=== PATIENT | male | born 1970 | race Caucasian/White ===

== ENCOUNTER 2016-07-08 04:58 | Day surgery (SDC) | payer BC ==
[~2016-07-08 04:58] MED LIST: MOBIC15 MG PO; PRILO PO; ZANAFLEX 4 MG TA4 MG PO; ZYRTEC ALLGY10 MG PO
== END 2016-07-08 07:07 | disposition home or self-care (01) ==
LOC: SDC 04:58
PROVIDERS: Orthopaedic Surgery Orthopaedic Surgery of the Spine
PROC: 3E0S33Z Introduction of Anti-inflammatory into Epidural Space, Percutaneous Approach (ICD-10-PCS; principal; 2016-07-08 07:30)
DX: M54.16 Radiculopathy, lumbar region (principal); G47.33 Obstructive sleep apnea (adult) (pediatric); K21.9 Gastro-esophageal reflux disease without esophagitis
CPT/HCPCS: J2250; J3010; Q9967